=== PATIENT | female | born 1995 | race African-American/Black ===

== ENCOUNTER 2020-05-28 11:10 | Emergency (ER) | payer SELFPAY ==
[~2020-05-28] VITALS: Ht 170.2 cm; Wt 70.3 kg
[2020-05-28 12:48] LABS: BASOPHILS % (AUTO) 2.4 % (0.0-2.0); HEMATOCRIT 34.9 % (36-46); HEMOGLOBIN 11.4 g/dL (12.0-16.0); LYMPHOCYTES # (AUTO) 1.8 K/uL (1.0-4.8); LYMPHOCYTES % (AUTO) 32.2 % (22.0-44.0); MEAN CORPUSCULAR HEMOGLOBIN 24.4 pg (26.0-34.0); MEAN CORPUSCULAR HGB CONC 32.8 G/dL (31.0-37.0); MEAN CORPUSCULAR VOLUME 74 fL (80-100); MONOCYTES # (AUTO) 0.4 K/uL (0.1-1.0); MONOCYTES % (AUTO) 6.8 % (2.0-9.0); NEUTROPHILS # (AUTO) 3.2 K/uL (1.8-7.7); NEUTROPHILS % (AUTO) 56.6 % (40.0-70.0); PLATELET COUNT (AUTO) 432 K/uL (150-450); RED BLOOD CELL COUNT(AUTO) 4.69 MIL/uL (4.00-5.20); RED CELL DISTRIBUTION WIDTH 20.5 % (11.5-14.5)
[2020-05-28 12:58] LABS: ANION GAP 11 mmol/L (8-16); CARBON DIOXIDE 26 mmol/L (22-29); CHLORIDE 100 mmol/L (98-107); CREATININE 1.11 mg/dL (0.60-1.30); GLOMERULAR FILTR. RATE CALC > 60 mL/min (>60); GLUCOSE,RANDOM 79 mg/dL (70-110); POTASSIUM 3.7 mmol/L (3.5-5.1); SODIUM SERUM 137 mmol/L (136-145); UREA NITROGEN, BLOOD 15 mg/dL (7-18)
[2020-05-28 13:10] LABS: ALANINE AMINOTRANSFERASE 45 U/L (12-78); ALBUMIN 3.9 g/dL (3.4-5.0); ALKALINE PHOSPHATASE 71 U/L (46-116); ASPARTATE AMINOTRANSFERASE 37 U/L (15-37); BILIRUBIN,TOTAL 2.6 mg/dL (0.1-1.0); HCG,QUANTITATIVE 1 mIU/mL (0-6); TOTAL PROTEIN, SERUM 8.2 g/dL (6.4-8.2)
[2020-05-28 14:16] VITALS: BP 113/75
== END 2020-05-28 14:34 | disposition home or self-care (01) ==
LOC: EMS 11:43
DX: R07.9 Chest pain, unspecified (principal); R53.83 Other fatigue; R50.9 Fever, unspecified; R91.8 Other nonspecific abnormal finding of lung field
CPT/HCPCS: 93005; 36415-L1; 36415-TC; 71045-TC

== ENCOUNTER 2020-08-03 17:42 | Emergency (ER) | payer MEDICAID ==
[~2020-08-03] VITALS: Ht 170.2 cm; Wt 68.2 kg
[2020-08-03] MEDS ORDERED: ALBUTEROL SULFATE HFA 90 MCG/PUFF 8 GM INHALER IH ONE (18:00)
[2020-08-03 18:34] LABS: BASOPHILS % (AUTO) 0.8 % (0.0-2.0); EOSINOPHILS % (AUTO) 1.6 % (1.0-6.0); HEMATOCRIT 33.8 % (36-46); HEMOGLOBIN 11.3 g/dL (12.0-16.0); LYMPHOCYTES # (AUTO) 2.3 K/uL (1.0-4.8); LYMPHOCYTES % (AUTO) 35.2 % (22.0-44.0); MEAN CORPUSCULAR HEMOGLOBIN 26.5 pg (26.0-34.0); MEAN CORPUSCULAR HGB CONC 33.3 G/dL (31.0-37.0); MEAN CORPUSCULAR VOLUME 80 fL (80-100); MONOCYTES # (AUTO) 0.4 K/uL (0.1-1.0); MONOCYTES % (AUTO) 6.4 % (2.0-9.0); NEUTROPHILS # (AUTO) 3.6 K/uL (1.8-7.7); PLATELET COUNT (AUTO) 399 K/uL (150-450); RED BLOOD CELL COUNT(AUTO) 4.24 MIL/uL (4.00-5.20); RED CELL DISTRIBUTION WIDTH 18.7 % (11.5-14.5)
[2020-08-03 18:49] LABS: ANION GAP 7 mmol/L (8-16); CALCIUM, TOTAL 8.3 mg/dL (8.8-10.5); CARBON DIOXIDE 26 mmol/L (22-29); CHLORIDE 105 mmol/L (98-107); CREATININE 0.95 mg/dL (0.60-1.30); GLOMERULAR FILTR. RATE CALC > 60 mL/min (>60); GLUCOSE,RANDOM 87 mg/dL (70-110); SODIUM SERUM 138 mmol/L (136-145); UREA NITROGEN, BLOOD 12 mg/dL (7-18)
[2020-08-03 19:03] LABS: ALANINE AMINOTRANSFERASE 43 U/L (12-78); ALBUMIN 3.7 g/dL (3.4-5.0); ALKALINE PHOSPHATASE 52 U/L (46-116); ASPARTATE AMINOTRANSFERASE 54 U/L (15-37); BILIRUBIN,TOTAL 1.3 mg/dL (0.1-1.0); HCG,QUANTITATIVE 1 mIU/mL (0-6); TOTAL PROTEIN, SERUM 7.1 g/dL (6.4-8.2)
[2020-08-03 19:14] VITALS: BP 131/61
[2020-08-03] MEDS ORDERED: KETOROLAC TROMETHAMINE 30 MG/ML VIAL IVP ONE (19:45)
== END 2020-08-03 20:53 | disposition home or self-care (01) ==
LOC: EMS 17:45
DX: J45.909 Unspecified asthma, uncomplicated (principal); F41.9 Anxiety disorder, unspecified; F17.210 Nicotine dependence, cigarettes, uncomplicated; F12.90 Cannabis use, unspecified, uncomplicated
CPT/HCPCS: 36415; 71045; 73110; 73130; 80053; 84702; 85025; 85379; 94640; 96374; 99284; J1885; J3535

== ENCOUNTER 2020-08-04 22:55 | Inpatient (IN) | payer MEDICAID ==
[~2020-08-04] VITALS: Ht 170.2 cm; Wt 70.7 kg
[2020-08-04] MEDS ORDERED: ACETAMINOPHEN 500 MG TABLET PO ONE (23:15)
[2020-08-04] MEDS ORDERED: IBUPROFEN 600 MG TABLET PO ONE (23:15)
[2020-08-04 23:49] LABS: BASOPHILS % (AUTO) 0.9 % (0.0-2.0); EOSINOPHILS % (AUTO) 1.2 % (1.0-6.0); HEMOGLOBIN 11.9 g/dL (12.0-16.0); LYMPHOCYTES # (AUTO) 2.1 K/uL (1.0-4.8); LYMPHOCYTES % (AUTO) 32.3 % (22.0-44.0); MEAN CORPUSCULAR HEMOGLOBIN 27.1 pg (26.0-34.0); MEAN CORPUSCULAR HGB CONC 33.9 G/dL (31.0-37.0); MEAN CORPUSCULAR VOLUME 80 fL (80-100); MONOCYTES # (AUTO) 0.3 K/uL (0.1-1.0); MONOCYTES % (AUTO) 5.2 % (2.0-9.0); NEUTROPHILS # (AUTO) 3.9 K/uL (1.8-7.7); NEUTROPHILS % (AUTO) 60.4 % (40.0-70.0); PLATELET COUNT (AUTO) 418 K/uL (150-450); RED BLOOD CELL COUNT(AUTO) 4.39 MIL/uL (4.00-5.20)
[2020-08-05 00:01] LABS: ANION GAP 7 mmol/L (8-16); CARBON DIOXIDE 26 mmol/L (22-29); CHLORIDE 105 mmol/L (98-107); CREATININE 0.89 mg/dL (0.60-1.30); GLOMERULAR FILTR. RATE CALC > 60 mL/min (>60); GLUCOSE,RANDOM 86 mg/dL (70-110); POTASSIUM 4.1 mmol/L (3.5-5.1); SODIUM SERUM 138 mmol/L (136-145); UREA NITROGEN, BLOOD 8 mg/dL (7-18)
[2020-08-05 00:07] LABS: ALANINE AMINOTRANSFERASE 40 U/L (12-78); ALKALINE PHOSPHATASE 55 U/L (46-116); ASPARTATE AMINOTRANSFERASE 40 U/L (15-37); BILIRUBIN,TOTAL 1.3 mg/dL (0.1-1.0); TOTAL PROTEIN, SERUM 7.6 g/dL (6.4-8.2)
[2020-08-05] MEDS ORDERED: OxyCODONE HCL 5 MG IR TABLET PO ONE (00:15)
[2020-08-05 00:21] LABS: COVID AG,FIA SOURCE NASOPHARYNGEAL
[2020-08-05] MEDS ORDERED: HALOPERIDOL 5 MG TABLET PO PRN (00:45)
[2020-08-05] MEDS ORDERED: ZOLPIDEM TARTRATE 10 MG TABLET PO PRN (00:45)
[2020-08-05] MEDS ORDERED: LORazepam 2 MG TABLET PO PRN (00:45)
[2020-08-05 00:52] LABS: HCG,QUANTITATIVE 1 mIU/mL (0-6)
[2020-08-05 09:09] VITALS: BP 117/59
[2020-08-05] MEDS ORDERED: ACETAMINOPHEN 325 MG TABLET PO PRN ×2 (09:45→10:45)
[2020-08-05] MEDS ORDERED: IBUPROFEN 400 MG TABLET PO PRN (09:45)
[2020-08-05] MEDS ORDERED: MAG HYDROX/AL HYDROX/SIMETH ES 30 ML SUSPENSION UDCUP PO PRN (10:45)
[2020-08-05] MEDS ORDERED: ONDANSETRON HCL 4 MG TABLET PO PRN (10:45)
[2020-08-05] MEDS ORDERED: PETROLATUM,WHITE 28 GM JELLY TP PRN (10:45)
[2020-08-05] MEDS ORDERED: CloNIDine HCL 0.1 MG TABLET PO PRN (10:45)
[2020-08-05] MEDS ORDERED: OMEPRAZOLE 20 MG CAPSULE PO PRN (10:45)
[2020-08-05] MEDS ORDERED: IBUPROFEN 600 MG TABLET PO PRN (10:45)
[2020-08-05] MEDS ORDERED: BACITRACIN 28 GM OINTMENT TP PRN (10:45)
[2020-08-05] MEDS ORDERED: BENZOCAINE/MENTHOL LOZENGE PO PRN (10:45)
[2020-08-05] MEDS ORDERED: MAGNESIUM HYDROXIDE SUSPENSION 30 ML UDCUP PO PRN (10:45)
[2020-08-05] MEDS ORDERED: LOPERAMIDE HCL 2 MG CAPSULE PO PRN (10:45)
[2020-08-05] MEDS ORDERED: DOCUSATE SODIUM 100 MG CAPSULE PO PRN (10:45)
[2020-08-05] MEDS ORDERED: ALBUTEROL SULFATE HFA 90 MCG/PUFF 8 GM INHALER IH PRN (10:45)
[2020-08-05] MEDS ORDERED: INFLUENZA VIRUS VACCINE QVS 2020-21 (6MO+)/PF 60 MCG/0.5 ML SYRINGE IM ONE (11:15)
[2020-08-05 16:00] VITALS: BP 105/53
== END 2020-08-05 19:30 | disposition home or self-care (01) | DRG 751 ==
LOC: EMS 22:55 → 3EI 08-05 00:48
PROVIDERS: ADMIT Psychiatry & Neurology Psychiatry; ATTEND Psychiatry & Neurology Psychiatry
DX: F32.2 Major depressive disorder, single episode, severe without psychotic features (principal); R45.851 Suicidal ideations; F41.9 Anxiety disorder, unspecified; Z20.828 Contact with and (suspected) exposure to other viral communicable diseases; G47.00 Insomnia, unspecified; F19.10 Other psychoactive substance abuse, uncomplicated; K59.00 Constipation, unspecified; J45.909 Unspecified asthma, uncomplicated; G90.512 Complex regional pain syndrome I of left upper limb; F17.210 Nicotine dependence, cigarettes, uncomplicated; Z28.21 Immunization not carried out because of patient refusal; Z71.6 Tobacco abuse counseling; Z71.51 Drug abuse counseling and surveillance of drug abuser
CPT/HCPCS: 87426; G0480; 71045-TC

== ENCOUNTER 2020-08-18 16:23 | Emergency (ER) | payer MEDICAID ==
[~2020-08-18] VITALS: Ht 170.2 cm; Wt 63.6 kg
[2020-08-18] MEDS ORDERED: KETOROLAC TROMETHAMINE 30 MG/ML VIAL IM ONE (18:30)
[2020-08-18 19:15] VITALS: BP 119/75
== END 2020-08-18 19:25 | disposition home or self-care (01) ==
LOC: EMS 16:23
DX: S63.502A Unspecified sprain of left wrist, initial encounter (principal); F17.210 Nicotine dependence, cigarettes, uncomplicated; F12.90 Cannabis use, unspecified, uncomplicated; W19.XXXA Unspecified fall, initial encounter; Y93.89 Activity, other specified; Y92.89 Other specified places as the place of occurrence of the external cause; Y99.8 Other external cause status
CPT/HCPCS: 29125; 73110; 73130; 96372; 99284; J1885

== ENCOUNTER 2020-09-08 11:12 | Emergency (ER) | payer MEDICAID ==
[~2020-09-08] VITALS: Ht 170.2 cm; Wt 35.8 kg
[2020-09-08] MEDS ORDERED: HydrOXYzine PAMOATE 50 MG CAPSULE PO ONE (11:30)
[2020-09-08 12:50] VITALS: BP 121/78
== END 2020-09-08 13:01 | disposition home or self-care (01) ==
LOC: EMS 11:15
DX: F41.9 Anxiety disorder, unspecified (principal); J45.909 Unspecified asthma, uncomplicated; F12.90 Cannabis use, unspecified, uncomplicated; F17.210 Nicotine dependence, cigarettes, uncomplicated
CPT/HCPCS: 93005; 71045-TC

== ENCOUNTER 2020-09-16 09:12 | Emergency (ER) | payer MEDICAID ==
[~2020-09-16] VITALS: Ht 170.2 cm; Wt 70.9 kg
[2020-09-16] MEDS ORDERED: HydrOXYzine PAMOATE 50 MG CAPSULE PO ONE (09:45)
[2020-09-16] MEDS ORDERED: GABA-1216 PO (09:48)
[2020-09-16] MEDS ORDERED: IBUP-2759 PO (09:48)
[2020-09-16] MEDS ORDERED: ACET325S20 PR (09:48)
[2020-09-16] MEDS ORDERED: HYDR-4031 PO (09:48)
[2020-09-16 12:15] VITALS: BP 126/80
== END 2020-09-16 12:56 | disposition home or self-care (01) ==
LOC: EMS 09:15
DX: F41.9 Anxiety disorder, unspecified (principal); R06.02 Shortness of breath; R07.89 Other chest pain; R00.2 Palpitations; F17.210 Nicotine dependence, cigarettes, uncomplicated; G89.29 Other chronic pain
CPT/HCPCS: 93005; Z7502; Z7610

== ENCOUNTER 2020-09-24 10:36 | Emergency (ER) | payer MEDICAID ==
[~2020-09-24] VITALS: Ht 170.2 cm; Wt 65.9 kg
[~2020-09-24 10:36] MED LIST: ACET325S20 PR; GABA-1216 PO; HYDR-4031 PO; IBUP-2759 PO
[2020-09-24] MEDS ORDERED: DIPH25CA85 PO (11:00)
[2020-09-24] MEDS ORDERED: SODIUM CHLORIDE 0.9% 1,000 ML IV ONE (11:00)
[2020-09-24 11:32] LABS: COVID AG,FIA SOURCE NASOPHARYNGEAL
[2020-09-24 11:36] LABS: BASOPHILS % (AUTO) 0.7 % (0.0-2.0); EOSINOPHILS % (AUTO) 1.7 % (1.0-6.0); HEMATOCRIT 39.4 % (36-46); HEMOGLOBIN 13.4 g/dL (12.0-16.0); LYMPHOCYTES # (AUTO) 1.9 K/uL (1.0-4.8); LYMPHOCYTES % (AUTO) 19.3 % (22.0-44.0); MEAN CORPUSCULAR HEMOGLOBIN 27.5 pg (26.0-34.0); MEAN CORPUSCULAR VOLUME 81 fL (80-100); MONOCYTES # (AUTO) 0.7 K/uL (0.1-1.0); MONOCYTES % (AUTO) 7.6 % (2.0-9.0); NEUTROPHILS % (AUTO) 70.7 % (40.0-70.0); PLATELET COUNT (AUTO) 351 K/uL (150-450); RED BLOOD CELL COUNT(AUTO) 4.89 MIL/uL (4.00-5.20); RED CELL DISTRIBUTION WIDTH 16.8 % (11.5-14.5)
[2020-09-24 11:48] LABS: ANION GAP 14 mmol/L (8-16); CALCIUM, TOTAL 8.8 mg/dL (8.8-10.5); CARBON DIOXIDE 25 mmol/L (22-29); CHLORIDE 103 mmol/L (98-107); CREATININE 0.83 mg/dL (0.60-1.30); GLOMERULAR FILTR. RATE CALC > 60 mL/min (>60); GLUCOSE,RANDOM 79 mg/dL (70-110); POTASSIUM 3.5 mmol/L (3.5-5.1); SODIUM SERUM 142 mmol/L (136-145); UREA NITROGEN, BLOOD 11 mg/dL (7-18)
[2020-09-24 12:01] LABS: ALANINE AMINOTRANSFERASE 51 U/L (12-78); ALBUMIN 4.1 g/dL (3.4-5.0); ALKALINE PHOSPHATASE 83 U/L (46-116); ASPARTATE AMINOTRANSFERASE 50 U/L (15-37); BILIRUBIN,TOTAL 0.5 mg/dL (0.1-1.0); HCG,QUANTITATIVE 1 mIU/mL (0-6); TOTAL PROTEIN, SERUM 8.9 g/dL (6.4-8.2)
[2020-09-24 12:21] LABS: RAPID GROUP A STREP NEGATIVE (NEGATIVE)
[2020-09-24 12:36] LABS: INFLUENZA TYPE A NEGATIVE FOR TYPE A (NEGATIVE); INFLUENZA TYPE B NEGATIVE FOR TYPE B (NEGATIVE)
[2020-09-24 13:57] LABS: APPEARANCE,URINE CLOUDY (CLEAR); BILIRUBIN,URINE NEGATIVE (NEGATIVE); GLUCOSE, URINE (UA) NEGATIVE (NEGATIVE); KETONES,URINE NEGATIVE (NEGATIVE); LEUKOCYTE ESTERASE ,URINE SMALL (NEGATIVE); NITRATE,URINE NEGATIVE (NEGATIVE); OCCULT BLOOD,URINE NEGATIVE (NEGATIVE); PH,URINE 5.5 (5.0-8.0); PROTEIN,URINE NEGATIVE (NEGATIVE); UROBILINOGEN,URINE 0.2 mg/dL (<=1.0)
[2020-09-24 14:09] LABS: BACTERIA,URINE Few /HPF (None Seen); RBC,URINE None Seen /HPF (0-2); SQUAMOUS EPITHELIAL CELL,UR Many /LPF (None Seen)
[2020-09-24 14:30] VITALS: BP 114/78
== END 2020-09-24 14:57 | disposition home or self-care (01) ==
LOC: EMS 10:36
DX: N89.8 Other specified noninflammatory disorders of vagina (principal); F10.129 Alcohol abuse with intoxication, unspecified; R55 Syncope and collapse; Z20.828 Contact with and (suspected) exposure to other viral communicable diseases; Y90.4 Blood alcohol level of 80-99 mg/100 ml
CPT/HCPCS: 36415; 80053; 81001; 82962; 84702; 85025; 87086; 87426; 87430; 87491; 87591; 87804; 93005; 99285; G0480; 82948

== ENCOUNTER 2020-10-10 14:11 | Emergency (ER) | payer MEDICAID ==
[~2020-10-10] VITALS: Ht 175.3 cm; Wt 70.5 kg
[~2020-10-10 14:11] MED LIST changes: -ACET325S20 PR; +DIPH25CA85 PO; -GABA-1216 PO; -HYDR-4031 PO; -IBUP-2759 PO
[2020-10-10] MEDS ORDERED: PROPARACAINE HCL 0.5% 15 ML OPHTHALMIC SOLUTION OU ONE (16:00)
[2020-10-10] MEDS ORDERED: FLUORESCEIN SODIUM 1 MG STRIP OU ONE (16:00)
[2020-10-10 17:30] VITALS: BP 117/78
== END 2020-10-10 17:39 | disposition home or self-care (01) ==
LOC: EMS 14:14
DX: T59.3X3A Toxic effect of lacrimogenic gas, assault, initial encounter (principal); F41.9 Anxiety disorder, unspecified; J45.909 Unspecified asthma, uncomplicated; F17.210 Nicotine dependence, cigarettes, uncomplicated; Y92.89 Other specified places as the place of occurrence of the external cause

== ENCOUNTER 2020-11-04 16:01 | Emergency (ER) | payer MEDICAID ==
[~2020-11-04] VITALS: Ht 172.7 cm; Wt 59.1 kg
[2020-11-04] MEDS ORDERED: CefTRIAXone SODIUM 1 GM/VIAL IM ONE (17:15)
[2020-11-04] MEDS ORDERED: AZITHROMYCIN 500 MG TABLET PO ONE (17:15)
[2020-11-04] MEDS ORDERED: LIDOCAINE/PF 1% 2 ML VIAL IM ONE (17:15)
[2020-11-04 17:19] LABS: APPEARANCE,URINE CLEAR (CLEAR); BILIRUBIN,URINE NEGATIVE (NEGATIVE); GLUCOSE, URINE (UA) NEGATIVE (NEGATIVE); KETONES,URINE NEGATIVE (NEGATIVE); LEUKOCYTE ESTERASE ,URINE NEGATIVE (NEGATIVE); NITRATE,URINE NEGATIVE (NEGATIVE); OCCULT BLOOD,URINE NEGATIVE (NEGATIVE); PROTEIN,URINE NEGATIVE (NEGATIVE); UROBILINOGEN,URINE 0.2 mg/dL (<=1.0)
[2020-11-04 18:59] LABS: COVID AG,FIA SOURCE NASOPHARYNGEAL
[2020-11-04] MEDS ORDERED: ACETAMINOPHEN 325 MG TABLET PO ONE (19:30)
[2020-11-04 19:55] VITALS: BP 127/74
== END 2020-11-04 20:07 | disposition home or self-care (01) ==
LOC: EMS 16:01
DX: R06.02 Shortness of breath (principal); F41.9 Anxiety disorder, unspecified; Z20.822 Contact with and (suspected) exposure to COVID-19
CPT/HCPCS: 81003; 87426; 96372; 99283; J0696; J3490; U0003

== ENCOUNTER 2020-12-20 12:23 | Emergency (ER) | payer MEDICAID ==
[~2020-12-20] VITALS: Ht 175.3 cm; Wt 79.5 kg
[2020-12-20 12:31] VITALS: BP 112/64
== END 2020-12-20 15:30 | disposition left against medical advice (07) ==
LOC: EMS 12:25
DX: R10.9 Unspecified abdominal pain (principal); Z53.21 Procedure and treatment not carried out due to patient leaving prior to being seen by health care provider

== ENCOUNTER 2020-12-21 19:22 | Emergency (ER) | payer MEDICAID ==
[~2020-12-21] VITALS: Ht 170.2 cm; Wt 72.7 kg
[2020-12-21] MEDS ORDERED: ACETAMINOPHEN 325 MG TABLET PO ONE (20:45)
[2020-12-21 22:46] VITALS: BP 118/66
== END 2020-12-21 22:49 | disposition home or self-care (01) ==
LOC: EMS 19:24
DX: O26.891 Other specified pregnancy related conditions, first trimester (principal); M79.644 Pain in right finger(s); F41.9 Anxiety disorder, unspecified; J45.909 Unspecified asthma, uncomplicated; F31.9 Bipolar disorder, unspecified; Z3A.01 Less than 8 weeks gestation of pregnancy
CPT/HCPCS: 99283; 99284

== ENCOUNTER 2021-01-05 10:36 | Emergency (ER) | payer MEDICAID ==
[~2021-01-05] VITALS: Ht 170.2 cm; Wt 77.3 kg
[2021-01-05] MEDS ORDERED: ACETAMINOPHEN 500 MG TABLET PO ONE (11:30)
[2021-01-05 12:23] LABS: BASOPHILS % (AUTO) 1.2 % (0.0-2.0); EOSINOPHILS % (AUTO) 1.8 % (1.0-6.0); HEMATOCRIT 36.5 % (36-46); HEMOGLOBIN 12.6 g/dL (12.0-16.0); LYMPHOCYTES # (AUTO) 1.7 K/uL (1.0-4.8); LYMPHOCYTES % (AUTO) 22.9 % (22.0-44.0); MEAN CORPUSCULAR HEMOGLOBIN 27.9 pg (26.0-34.0); MEAN CORPUSCULAR HGB CONC 34.5 G/dL (31.0-37.0); MEAN CORPUSCULAR VOLUME 81 fL (80-100); MONOCYTES # (AUTO) 0.6 K/uL (0.1-1.0); MONOCYTES % (AUTO) 8.1 % (2.0-9.0); NEUTROPHILS # (AUTO) 4.8 K/uL (1.8-7.7); PLATELET COUNT (AUTO) 367 K/uL (150-450); RED CELL DISTRIBUTION WIDTH 16.3 % (11.5-14.5)
[2021-01-05 12:33] LABS: ANION GAP 10 mmol/L (8-16); CARBON DIOXIDE 26 mmol/L (22-29); CHLORIDE 104 mmol/L (98-107); CREATININE 0.86 mg/dL (0.60-1.30); GLOMERULAR FILTR. RATE CALC > 60 mL/min (>60); GLUCOSE,RANDOM 92 mg/dL (70-110); POTASSIUM 3.9 mmol/L (3.5-5.1); SODIUM SERUM 140 mmol/L (136-145); UREA NITROGEN, BLOOD 10 mg/dL (7-18)
[2021-01-05 13:04] LABS: ALANINE AMINOTRANSFERASE 24 U/L (12-78); ALKALINE PHOSPHATASE 53 U/L (46-116); ASPARTATE AMINOTRANSFERASE 17 U/L (15-37); BILIRUBIN,TOTAL 0.7 mg/dL (0.1-1.0); HCG,QUANTITATIVE 11157 mIU/mL (0-6); LIPASE 119 U/L (73-393); TOTAL PROTEIN, SERUM 8.1 g/dL (6.4-8.2)
[2021-01-05 13:24] VITALS: BP 131/70
== END 2021-01-05 13:25 | disposition home or self-care (01) ==
LOC: EMS 10:36
DX: H57.11 Ocular pain, right eye (principal); R10.9 Unspecified abdominal pain
CPT/HCPCS: 76801; 76817; 86901; 99284

== ENCOUNTER 2021-01-17 11:00 | Emergency (ER) | payer MEDICAID ==
[~2021-01-17] VITALS: Ht 170.2 cm; Wt 72.7 kg
[2021-01-17 11:41] LABS: BASOPHILS % (AUTO) 0.8 % (0.0-2.0); EOSINOPHILS % (AUTO) 1.3 % (1.0-6.0); HEMATOCRIT 31.8 % (36-46); HEMOGLOBIN 11.1 g/dL (12.0-16.0); LYMPHOCYTES # (AUTO) 1.7 K/uL (1.0-4.8); LYMPHOCYTES % (AUTO) 22.5 % (22.0-44.0); MEAN CORPUSCULAR HEMOGLOBIN 28.2 pg (26.0-34.0); MEAN CORPUSCULAR HGB CONC 34.8 G/dL (31.0-37.0); MEAN CORPUSCULAR VOLUME 81 fL (80-100); MONOCYTES # (AUTO) 0.7 K/uL (0.1-1.0); MONOCYTES % (AUTO) 9.3 % (2.0-9.0); NEUTROPHILS # (AUTO) 5.1 K/uL (1.8-7.7); NEUTROPHILS % (AUTO) 66.1 % (40.0-70.0); PLATELET COUNT (AUTO) 247 K/uL (150-450); RED BLOOD CELL COUNT(AUTO) 3.93 MIL/uL (4.00-5.20)
[2021-01-17] MEDS ORDERED: ONDANSETRON HCL 4 MG/2 ML VIAL IVP ONE (11:45)
[2021-01-17] MEDS ORDERED: SODIUM CHLORIDE 0.9% 1,000 ML IV ONE (11:45)
[2021-01-17 12:02] LABS: ANION GAP 10 mmol/L (8-16); CALCIUM, TOTAL 8.4 mg/dL (8.8-10.5); CARBON DIOXIDE 25 mmol/L (22-29); CHLORIDE 104 mmol/L (98-107); CREATININE 0.77 mg/dL (0.60-1.30); GLOMERULAR FILTR. RATE CALC > 60 mL/min (>60); GLUCOSE,RANDOM 87 mg/dL (70-110); POTASSIUM 3.7 mmol/L (3.5-5.1); SODIUM SERUM 139 mmol/L (136-145); UREA NITROGEN, BLOOD 6 mg/dL (7-18)
[2021-01-17 12:30] LABS: ALANINE AMINOTRANSFERASE 20 U/L (12-78); ALBUMIN 3.3 g/dL (3.4-5.0); ALKALINE PHOSPHATASE 43 U/L (46-116); ASPARTATE AMINOTRANSFERASE 12 U/L (15-37); BILIRUBIN,TOTAL 0.6 mg/dL (0.1-1.0); HCG,QUANTITATIVE 60088 mIU/mL (0-6); TOTAL PROTEIN, SERUM 6.9 g/dL (6.4-8.2)
[2021-01-17 13:43] VITALS: BP 120/62
== END 2021-01-17 13:49 | disposition home or self-care (01) ==
LOC: EMS 11:05
DX: O20.0 Threatened abortion (principal); F41.9 Anxiety disorder, unspecified; J45.909 Unspecified asthma, uncomplicated; F31.9 Bipolar disorder, unspecified; F17.210 Nicotine dependence, cigarettes, uncomplicated; Z3A.01 Less than 8 weeks gestation of pregnancy
CPT/HCPCS: 36415; 76801; 76817; 80053; 84702; 85025; 96361; 96374; 99284; J2405; J7030

== ENCOUNTER 2022-01-31 03:35 | Emergency (ER) | payer MEDICAID ==
[~2022-01-31] VITALS: Ht 170.2 cm; Wt 69.0 kg
[2022-01-31 05:00] VITALS: BP 116/59
[2022-01-31] MEDS ORDERED: BACITRACIN 0.9 GM PACKET OINTMENT TP ONE (05:15)
== END 2022-01-31 05:52 | disposition home or self-care (01) ==
LOC: EMS 03:37
DX: S00.211A Abrasion of right eyelid and periocular area, initial encounter (principal); S20.411A Abrasion of right back wall of thorax, initial encounter; F41.9 Anxiety disorder, unspecified; F31.9 Bipolar disorder, unspecified; J45.909 Unspecified asthma, uncomplicated; F17.210 Nicotine dependence, cigarettes, uncomplicated; Y04.2XXA Assault by strike against or bumped into by another person, initial encounter; Y93.89 Activity, other specified; Y92.89 Other specified places as the place of occurrence of the external cause; Y99.8 Other external cause status
CPT/HCPCS: 99283

== ENCOUNTER 2022-03-15 23:38 | Emergency (ER) | payer MEDICAID ==
[~2022-03-15] VITALS: Ht 170.2 cm; Wt 80.0 kg
[2022-03-16] MEDS ORDERED: BACLOFEN 10 MG TABLET PO ONE (02:30)
[2022-03-16] MEDS ORDERED: KETOROLAC TROMETHAMINE 60 MG/2 ML VIAL IM ONE (02:30)
[2022-03-16 02:42] LABS: EOSINOPHILS % (AUTO) 1.7 % (1.0-6.0); HEMATOCRIT 38.8 % (36-46); HEMOGLOBIN 13.7 g/dL (12.0-16.0); LYMPHOCYTES # (AUTO) 2.5 K/uL (1.0-4.8); LYMPHOCYTES % (AUTO) 36.7 % (22.0-44.0); MEAN CORPUSCULAR HEMOGLOBIN 31.6 pg (26.0-34.0); MEAN CORPUSCULAR HGB CONC 35.3 G/dL (31.0-37.0); MEAN CORPUSCULAR VOLUME 89 fL (80-100); MONOCYTES # (AUTO) 0.7 K/uL (0.1-1.0); MONOCYTES % (AUTO) 10.4 % (2.0-9.0); NEUTROPHILS # (AUTO) 3.4 K/uL (1.8-7.7); NEUTROPHILS % (AUTO) 50.2 % (40.0-70.0); PLATELET COUNT (AUTO) 372 K/uL (150-450); RED BLOOD CELL COUNT(AUTO) 4.34 MIL/uL (4.00-5.20); RED CELL DISTRIBUTION WIDTH 15.7 % (11.5-14.5)
[2022-03-16] MEDS ORDERED: BACL10TA PO (02:47)
[2022-03-16] MEDS ORDERED: ACET-66 PO (02:47)
[2022-03-16] MEDS ORDERED: IBUP-1554 PO (02:47)
[2022-03-16 02:54] LABS: ANION GAP 7 mmol/L (8-16); CALCIUM, TOTAL 8.6 mg/dL (8.8-10.5); CARBON DIOXIDE 27 mmol/L (22-29); CHLORIDE 102 mmol/L (98-107); CREATININE 0.89 mg/dL (0.60-1.30); GLOMERULAR FILTR. RATE CALC > 60 mL/min (>60); GLUCOSE,RANDOM 101 mg/dL (70-110); POTASSIUM 3.6 mmol/L (3.5-5.1); SODIUM SERUM 136 mmol/L (136-145); UREA NITROGEN, BLOOD 13 mg/dL (7-18)
[2022-03-16 03:00] LABS: ALANINE AMINOTRANSFERASE 148 U/L (12-78); ALBUMIN 4.1 g/dL (3.4-5.0); ALKALINE PHOSPHATASE 82 U/L (46-116); ASPARTATE AMINOTRANSFERASE 182 U/L (15-37); BILIRUBIN,TOTAL 2.4 mg/dL (0.1-1.0); TOTAL PROTEIN, SERUM 8.1 g/dL (6.4-8.2)
[2022-03-16 05:33] VITALS: BP 119/66
[2022-03-18 01:06] LABS: HEPATITIS C AB (EIA) <0.1 s/co ratio (0.0-0.9)
== END 2022-03-16 06:05 | disposition home or self-care (01) ==
LOC: EMS 23:41
DX: S39.012A Strain of muscle, fascia and tendon of lower back, initial encounter (principal); J45.909 Unspecified asthma, uncomplicated; F31.9 Bipolar disorder, unspecified; F41.9 Anxiety disorder, unspecified; F17.210 Nicotine dependence, cigarettes, uncomplicated; X50.9XXA Other and unspecified overexertion or strenuous movements or postures, initial encounter; Y93.89 Activity, other specified; Y92.89 Other specified places as the place of occurrence of the external cause; Y99.8 Other external cause status
CPT/HCPCS: 36415; 76705; 80053; 80074; 84703; 85025; 99284; J1885

== ENCOUNTER 2022-07-10 09:00 | Emergency (ER) | payer MEDICAID ==
[~2022-07-10] VITALS: Ht 170.2 cm; Wt 59.1 kg
[~2022-07-10 09:00] MED LIST changes: +ACET-66 PO; +BACL10TA PO; -DIPH25CA85 PO; +IBUP-1554 PO
[2022-07-10 09:06] VITALS: BP 113/80
[2022-07-10] MEDS ORDERED: IBUP-2071 PO (09:13)
== END 2022-07-10 11:22 | disposition left against medical advice (07) ==
LOC: EMS 09:04
DX: Z53.21 Procedure and treatment not carried out due to patient leaving prior to being seen by health care provider (principal)

== ENCOUNTER 2022-11-07 16:44 | Emergency (ER) | payer MEDICAID ==
[~2022-11-07] VITALS: Ht 170.2 cm; Wt 61.3 kg
[~2022-11-07 16:44] MED LIST changes: -ACET-66 PO; -BACL10TA PO; +IBUP-1493 PO; -IBUP-1554 PO
[2022-11-07 17:10] VITALS: BP 108/72
== END 2022-11-07 18:32 | disposition left against medical advice (07) ==
LOC: EMS 16:44
DX: R10.33 Periumbilical pain (principal); Z53.21 Procedure and treatment not carried out due to patient leaving prior to being seen by health care provider

== ENCOUNTER 2023-06-30 00:55 | Emergency (ER) | payer OTHER ==
[~2023-06-30] VITALS: Ht 170.2 cm; Wt 68.2 kg
[2023-06-30 01:32] VITALS: TEMP 97.9
[2023-06-30 02:25] VITALS: BP 114/72; PULSE 77; RESP 18
== END 2023-06-30 02:40 | disposition home or self-care (01) ==
LOC: EMS 00:55
DX: S00.93XA Contusion of unspecified part of head, initial encounter (principal); F41.9 Anxiety disorder, unspecified; J45.909 Unspecified asthma, uncomplicated; F31.9 Bipolar disorder, unspecified; F17.210 Nicotine dependence, cigarettes, uncomplicated; Y09 Assault by unspecified means; Y93.89 Activity, other specified; Y92.89 Other specified places as the place of occurrence of the external cause; Y99.8 Other external cause status
CPT/HCPCS: 93005; 99283

== ENCOUNTER 2024-04-22 17:53 | Emergency (ER) | payer OTHER ==
[~2024-04-22] VITALS: Ht 170.2 cm; Wt 75.0 kg
[~2024-04-22 17:53] MED LIST changes: +ACET-3385 PO; +CEPH-558 PO; +CLIN-26 PO; -IBUP-1493 PO
[2024-04-22 18:14] VITALS: BP 155/87; PULSE 117; RESP 22; TEMP 98.1
[2024-04-22] MEDS: ChlorproMAZINE HCL 50 MG/2 ML AMP IM ONE (18:35)
[2024-04-22 18:59] LABS: BASOPHILS % (AUTO) 1.1 % (0.0-2.0); EOSINOPHILS % (AUTO) 0.4 % (1.0-6.0); HEMATOCRIT 37.4 % (36-46); HEMOGLOBIN 13.1 g/dL (12.0-16.0); LYMPHOCYTES # (AUTO) 2.2 K/uL (1.0-4.8); LYMPHOCYTES % (AUTO) 24.5 % (22.0-44.0); MEAN CORPUSCULAR HEMOGLOBIN 30.8 pg (26.0-34.0); MEAN CORPUSCULAR HGB CONC 34.9 G/dL (31.0-37.0); MEAN CORPUSCULAR VOLUME 88 fL (80-100); MONOCYTES # (AUTO) 0.9 K/uL (0.1-1.0); MONOCYTES % (AUTO) 9.9 % (2.0-9.0); NEUTROPHILS # (AUTO) 5.8 K/uL (1.8-7.7); NEUTROPHILS % (AUTO) 64.1 % (40.0-70.0); PLATELET COUNT (AUTO) 371 K/uL (150-450); RED BLOOD CELL COUNT(AUTO) 4.25 MIL/uL (4.00-5.20); RED CELL DISTRIBUTION WIDTH 15.5 % (11.5-14.5); WHITE BLOOD COUNT (AUTO) 9.1 K/uL (4.5-11.0)
[2024-04-22 19:08] LABS: ANION GAP 18 mmol/L (8-16); CARBON DIOXIDE 20 mmol/L (22-29); CHLORIDE 104 mmol/L (98-107); CREATININE 0.87 mg/dL (0.60-1.30); GLOMERULAR FILTR. RATE CALC > 60 mL/min (>60); GLUCOSE,RANDOM 83 mg/dL (70-110); POTASSIUM 3.4 mmol/L (3.5-5.1); SODIUM SERUM 142 mmol/L (136-145); UREA NITROGEN, BLOOD 9 mg/dL (7-18)
[2024-04-22 19:13] LABS: ALANINE AMINOTRANSFERASE 107 U/L (12-78); ALBUMIN 3.4 g/dL (3.4-5.0); ALKALINE PHOSPHATASE 188 U/L (46-116); ASPARTATE AMINOTRANSFERASE 94 U/L (15-37); BILIRUBIN,TOTAL 0.9 mg/dL (0.1-1.0); TOTAL PROTEIN, SERUM 8.5 g/dL (6.4-8.2)
[2024-04-22 19:15] LABS: ALCOHOL, BLOOD (SERUM) 172 mg/dL (0-10)
== END 2024-04-22 20:36 ==
LOC: EMS 18:02
DX: F10.129 Alcohol abuse with intoxication, unspecified (principal); J45.909 Unspecified asthma, uncomplicated; F17.210 Nicotine dependence, cigarettes, uncomplicated; Z79.899 Other long term (current) drug therapy; Y90.6 Blood alcohol level of 120-199 mg/100 ml
CPT/HCPCS: 99283; 80053; 85025; 36415; 96372; G0480; J3230